=== PATIENT | female | born 1995 | race Caucasian/White ===

== ENCOUNTER 2024-10-28 10:03 | Outpatient (CLI) | payer OTHER, SELFPAY ==
--- NOTE | 2024-10-28 10:15 | CRLHL7_ITS ---
For Patients: As a result of the Century Cures Act, medical imaging exams and procedure reports are released immediately into your electronic medical record. You may view this report before your referring provider. If you have questions, please contact your health care provider. INDICATION: First trimester scan, establish dates. COMPARISON: None. TECHNIQUE: Real-time allred-scale imaging of the pelvis was performed. FINDINGS: Sonographic imaging demonstrates a single living intrauterine gestation. The embryo demonstrates a regular cardiac rate measuring 171 beats per minute. The embryo`s crown-rump length measurement of 1.9 cm corresponds to a gestational age of 8 weeks 3 days with a sonographic due date of 06/06/2025. There is a normal-appearing yolk sac. There are no gross abnormalities noted within the embryo at this early state of development. The gestational sac has a normal appearance. There is a superior perigestational hemorrhage measuring 2.3 x 1.4 x 1.2 cm. The amount of fluid within the sac appears appropriate for gestational age. The cervix is closed. The myometrium appears normal. Corpus luteal cyst left ovary measures 2.4 x 1.3 x 2.0 cm. Echogenic focus within the right ovary measures 5 x 3 x 5 millimeters. There are no suspicious fluid collections noted in the cul-de-sac. IMPRESSION: Single living intrauterine measuring 8 weeks 3 days and sonographic gestational age 0706/06/2025. Subchorionic hemorrhage measures 2.3 x 1.4 x 1.2 cm. 5 millimeter dermoid or calcification within the right ovary. Dictated by Gumaro De La Rosa MD @ 10/28/2024 12:32:57 PM (Electronically Signed)
== END 2024-10-28 10:04 | disposition home or self-care (01) ==
LOC: US 10:06
PROVIDERS: PCP Advanced Practice Midwife; Visit Provider Advanced Practice Midwife
DX: Z34.91 Encounter for supervision of normal pregnancy, unspecified, first trimester (principal); O20.9 Hemorrhage in early pregnancy, unspecified; O99.891 Other specified diseases and conditions complicating pregnancy; D27.0 Benign neoplasm of right ovary; Z3A.08 8 weeks gestation of pregnancy
CPT/HCPCS: 76817

== ENCOUNTER 2024-10-28 11:27 | Outpatient (CLI) | payer OTHER, SELFPAY | END 2024-10-28 11:28 | disposition home or self-care (01) | PROVIDERS: PCP Advanced Practice Midwife; Visit Provider Advanced Practice Midwife | DX: O99.891 Other specified diseases and conditions complicating pregnancy (principal); D27.0 Benign neoplasm of right ovary; Z3A.08 8 weeks gestation of pregnancy | CPT/HCPCS: 83020; 83021; 84443; 85660; 86592; 86703; 86704; 86706; 86762; 86787; 86803; 86850; 86900; 86901; 87086; 87340 ==

== ENCOUNTER 2025-01-20 07:57 | Outpatient (CLI) | payer OTHER, SELFPAY | END 2025-01-20 07:58 | disposition home or self-care (01) | LOC: NFLDREF 07:58 | PROVIDERS: PCP Advanced Practice Midwife; Visit Provider Advanced Practice Midwife | DX: E06.3 Autoimmune thyroiditis (principal) | CPT/HCPCS: 84443 ==

== ENCOUNTER 2025-01-20 10:09 | Outpatient (CLI) | payer OTHER, SELFPAY ==
--- NOTE | 2025-01-20 10:15 | CRLHL7_ITS ---
For Patients: As a result of the Century Cures Act, medical imaging exams and procedure reports are released immediately into your electronic medical record. You may view this report before your referring provider. If you have questions, please contact your health care provider. OB ULTRASOUND LMP: 08/30/2024. SHADI by LMP: 06/06/2025. GA: 20 w, 3 d. INDICATION: Anatomy. TECHNIQUE: Real time grayscale imaging of the fetus was performed. Evaluate anatomy. Transabdominal. position: Vertex. Cervix: Visualized. Technique: Transabdominal. Length of closed cervix: 5.6 cm. Placenta/cord: Posterior. Technique: Transabdominal. Placenta tip to internal OS: 5.7 cm. Umbilical Cord: 3-vessel cord. Placenta insertion: Central. Amniotic Fluid: 3.6 cm SDP (greater than/equal to: 2- less than 8 cm). SURVEY: Observed Structures. Calvarium/Spine: Cerebellum: 2.0 cm, 20 w 5 d. Cisterna Magna: 3.3 mm. Nuchal Fold: 5.5 mm. Lateral Ventricle: 6.3 mm. CSP: Yes. Midline Falx: Yes. Choroid Plexus: Yes. Spine: Yes. Abdomen: Stomach: Yes. Abd Cord Insertion: Yes. Urinary Bladder: Yes. Kidneys: Yes. Diaphragm: Yes. Face: Nose/lips: Yes. Orbital view: Yes. Profile: Yes. Limbs: Upper Extremities: Yes. Lower Extremities: Yes. Hands: Yes. Feet: Yes. Vascular: 4-Chamber Heart: Yes. LVOT: Yes. RVOT: Yes. 3VV: Yes. 3VTV: Yes. BPD: 4.6 cm. 19 w, 6 d, 27.9 percent. HC: 17.5 cm. 20 w, 0 d, 24.0 percent. AC: 14.8 cm. 20 w, 0 d, 31.0 percent. FL: 3.3 cm. 20 w, 1 d, 31.5 percent. FL/AC ratio: 22.0 percent. HC/AC ratio: 1.2. heart rate: 142 bpm. age by this US: 20 w, 1 d. SHADI by this US: 06/08/2025. EFW: 330.6 g. Weight: 12 oz. Percentile by SHADI: 26.7 percent. IMPRESSION: 1. Concordance of clinical and sonographic dating. 2. Normal anatomic survey. Gumaro De La Rosa M.D. Diagnostic Radiologist [email or web address] [email or web address]/Dictated by: Gumaro De La Rosa MD @ 01/21/2025 10:29:00 AM (Electronically Signed)
== END 2025-01-20 10:10 | disposition home or self-care (01) ==
LOC: US 10:09
PROVIDERS: PCP Advanced Practice Midwife; Visit Provider Advanced Practice Midwife
DX: Z34.92 Encounter for supervision of normal pregnancy, unspecified, second trimester (principal); Z3A.20 20 weeks gestation of pregnancy
CPT/HCPCS: 76805

== ENCOUNTER 2025-03-17 11:18 | Outpatient (CLI) | payer OTHER, SELFPAY | END 2025-03-17 11:19 | disposition home or self-care (01) | LOC: NFLDREF 11:19 | PROVIDERS: PCP Advanced Practice Midwife; Visit Provider Advanced Practice Midwife | DX: Z34.83 Encounter for supervision of other normal pregnancy, third trimester (principal); E06.3 Autoimmune thyroiditis | CPT/HCPCS: 84443; 86592 ==

== ENCOUNTER 2025-05-10 13:15 | Outpatient (CLI) | payer OTHER, SELFPAY | END 2025-05-10 13:16 | disposition home or self-care (01) | LOC: NFLDREF 05-14 00:39 | PROVIDERS: PCP Advanced Practice Midwife; Referring Provider Advanced Practice Midwife; Visit Provider Midwife | DX: Z34.83 Encounter for supervision of other normal pregnancy, third trimester (principal) | CPT/HCPCS: 87081; 87653 ==

== ENCOUNTER 2025-06-07 03:43 | Outpatient (CLI) | payer OTHER, SELFPAY ==
[2025-06-07 03:56] VITALS: PULSE 245; O2SAT 83
[2025-06-07 03:57] VITALS: BP 117/84; PULSE 82; PULSE 84; O2SAT 99
--- NOTE | 2025-06-07 04:38 | PC.OBNST ---
NST Note NST Note Start: 06/07/25 03:46 Freq: ONCE Status: Active Protocol: Document 06/07/25 04:37 JESSICA (Rec: 06/07/25 04:38 JESSICA [id number]) NST Note 2 Para (# of births) 1 EDC 06/06/25 Gestational Age In 40 Weeks & 1 Days Weeks & Days Patient Presented Decreased movement with Complaint(s) of Reactive Yes Appropriate for Yes Gestational Age RN Moises RN Date 06/07/25 Reactive Yes Appropriate for Yes Gestational Age RN Hector RN Date 06/07/25 OB NST charge Yes Complete NST Note Yes via Write Note The provider's electronic signature indicates the NST is reactive/appropriate for gestational age. *Note to provider: If an addendum is required, open the patient's chart and click on the note under the Nurse/Allied Health tab.
== END 2025-06-07 05:00 | disposition home or self-care (01) ==
LOC: OB OUT 03:43 → OB 03:45
PROVIDERS: PCP Advanced Practice Midwife; Visit Provider Midwife, Lay
DX: O36.8130 Decreased fetal movements, third trimester, not applicable or unspecified (principal); Z3A.40 40 weeks gestation of pregnancy
CPT/HCPCS: 59025; G0463

== ENCOUNTER 2025-06-09 06:04 | Inpatient (IN) | payer OTHER, SELFPAY ==
[2025-06-09] VITALS (18 sets, daily range): BP systolic 106–144; BP diastolic 62–87; PULSE 80–111; RESP 12–16; TEMP 36.6–36.9; O2SAT 98–100
--- NOTE | 2025-06-09 06:15 | P.LDBA_ITS ---
Subjective History of Present Illness Date Seen: 06/09/25 Narrative: Patient is being admitted to Labor and Delivery for spontaneous onset of labor. She is a 29 year old at 40 1/7 weeks gestation. Her full history and physical was dictated by Joel SHELLEY on 05/17/25. Please see this for details. She is supported in labor by Haseeb. Good FM. No LOF, some bloody show present. Labor started at about 0330. She is feeling it in her hips and across her stomach. Specific Issues/Plans Partner:??Haseeb. Son Kendall H&P done for labor admit 05/17/25 # Charlotte, w/ thyroid nodule Was managed by endocrine in [place], does not have area field person here in [place] Thyroid nodule was biopsied with unremarkable findings by endocrine Endocrine referral TSH at NOB 1.84, on 100 mcg levothyroxine *Taking 75 mcg Levothyroxine prior to , return to this dose after delivery. TSH 2nd trimester: 1.48 on 12/15/24 they desire repeat in 6 weeks; TSH collected on 01/20/25: 1.160 TSH 3rd trimester: 1.050 Repeat thyroid US Oct 2025 with Endocrine. # Hx of PPH Previous delivery 02/20/22: PPH for uterine atony and received all meds; QBL 1395 with manual sweep by . No concern for retained POC Recommend AMTSL: patient is OK with this if needed. # Headaches, generalized # Heart palpitations Offered cardiology referral, Holter monitor, labs for electrolytes. Patient declined for now. Will reach out if symptoms return. IMAGING:? 1st trimester: Single living intrauterine measuring 8 weeks 3 days and sonographic gestational age 0706/06/2025. Subchorionic hemorrhage measures 2.3 x 1.4 x 1.2 cm. 5 millimeter dermoid or calcification within the right ovary. Dictated by Gumaro De La Rosa MD @ 10/28/2024? Anatomy scan: 1. Concordance of clinical and sonographic dating. 2. Normal anatomic survey. Gumaro De La Rosa MD @ 01/21/2025? Others: none? COVID:?? Flu:?? Tdap:?04/19/2025? 32wk Mental Health:?? Pap: (Only high-risk abnormal pap in problem list)?? OB - Problem Based A/P Additional Plan (1) Pain during labor: Status: Acute (2) Post term : Status: Acute (3) History of hemorrhage: Status: Acute (4) Charlotte's disease: Status: Acute Plan ASSESSMENT:?? 29 at 40 1/7 weeks gestation?? 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 Labor type:Spontaneous, active labor?? Category 1 FHR pattern.??? Labor complicated by: hx PP hemorrhage?? GBS negative ?? PLAN:?? 1. Routine intrapartum cares as ordered. Continue with expectant management?? 2. Monitoring per policy, intermittent?? 3. Planning unmedicated . Desires water . Consent signed. Hep C negative. Candidate for analgesia of choice.??? 4. Patient encouraged to reposition and ambulate to promote physiologic labor and .?? 5. Labs : CBC, Type and screen. Pt agrees to saline lock 6. Plan to drop back to 75 mcg levo daily 7. Anticipate ? OB Exam Physical Exam Vital signs: Pulse BP 91 123/82 06/09/25 06:14 06/09/25 06:14 Narrative: Vitals Reviewed Constitutional:? Alert and oriented x3 HEENT:? Normocephalic, atraumatic Neck:? Supple Lungs:? Clear to auscultation bilaterally Heart:? Regular rate and rhythm, no murmur, rub or gallop Abdomen:? Soft, nontender, and gravid. Vertex by Lui's, confirmed with cervical exam. Extremities:? No edema or erythema Cervix: 5 cm per nursing NST: 135 bpm/moderate variability/accelerations absent/decelerations absent/contractions q 4 min
[2025-06-09 08:41] LABS: Hematocrit 36.3 % (33.0-51.0); Hemoglobin* 11.5 gm/dL (12.0-16.0); Immature Granulocytes Pct Auto 0.2 %; Mean Corpuscular HGB Conc 32 gm/dL (32-36); Mean Corpuscular Hemoglobin 26 pg (26-34); Mean Corpuscular Volume 82 fL (80-100); RDW Coefficient of Variation % 13.5 % (11.5-15.5); Red Blood Count 4.43 m/uL (4.00-5.20); White Blood Count* 11.26 K/uL (4.50-11.00)
[2025-06-09 08:42] LABS: Immature Granulocytes Abs Auto 0.00 K/uL (0.00-0.30); Lymphocytes Absolute Auto 1.60 K/uL (0.90-2.90); Slide Review Reflex No
[2025-06-09] MEDS: OXYTOCIN 30 unit/500 ML in NS 30 UNIT/500 ML BAG 300 UNIT IVPB (13:54)
--- NOTE | 2025-06-09 15:01 | W.PM.OBVAGDE ---
OB Procedure Vag Delivery Mother Details Mother Details: The patient is a 29 year-old, 2, Para 1, admitted on 06/09/25 at 40.3Days gestation. : 2 Para: 2 Weeks Gestation: 40.3 Admission Date: 06/09/25 Additional Details Amniotic Membrane Status: SROM Amniotic Membrane Rupture Date: 06/09/25 Amniotic Membrane Rupture Time: 13:03 Amniotic Membrane Fluid Description: Clear Analgesia/Anesthesia Type: Nitrous Oxide Waterbirth: Yes Pitcoin: Yes (AMTSL only) Intrapartal Events: None Labor Onset: 12:36 Complete: 13:06 (presumed complete with spontaneous pushing) Pushin:06 Heart: heart tones during second stage were heard by doppler in the [] without decreases heard. Delivery Details Delivery Date: 06/09/25 Delivery Time: 13:13 Route of delivery: Infant Gender: Male Infant Viability: Alive; Heart Rate Present Position at Delivery: OA Delivery Details: Madonna was admitted for spontaneous labor and progressed normally. She was moved into the water tub room when it was available and used nitrous and hydrotherapy for labor coping. She labored in the tub for a while before being encouraged to get out to empty her bladder. She did do side lying release, used the peanut ball and standing at the bedside to help progress labor while she was out. SROM noted at 1303 with clear fluid while standing at the side of the bed. She was then encouraged and assisted to get back into the tub as she desired a water . Patient was presumed complete with spontaneous pushing at 1306. of a viable male at 1313 in hands and knees in the tub. Vertex delivered OA. No nuchal cord or shoulder. Body delivered easily and without incident. Infant passed to mothers abdomen with a vigorous cry. Cord was clamped and cut at > 5 minutes. APGARS were 8 at one minute and 8 at five minutes respectively. Mouth was bulb suctioned. Intact placenta with a 3 vessel cord delivered spontaneously at 1346. Some calcifications and a circumvallate placenta was noted with inspection. Fundus firm. 1st degree laceration identified and was well approximated and hemostatic. After shared decision making the patient declined repair of the laceration. QBL 320 mL and 50 EBL in the tub and not in the drape for a total blood loss of 375mL. Mother and baby stable; mother plans to breastfeed. Infant weight 9lb 2oz. 1 Minute Interval Total Score: 8 5 Minute Interval Total Score: 8 Additional Details Shoulder Dystocia: No Placenta Delivery Time: 13:46 Placental Delivery Description: Spontaneous Procedure Done: Global Blood Loss: 375 Laceration: Perineal - 1st Degree (not repaired ) Episiotomy Description: None Blood Loss Measurement Type: QBL Bakri Used: No Sponge/Need Count Correct: Yes Cord Vessel Description: 3 Vessels Event Summary Status: Mother and infant were stable after delivery. Disposition: floor
--- NOTE | 2025-06-09 22:31 | P.DS_ITS ---
DS: Providers Provider Date Seen: 06/09/25 Date of admission: 06/09/25 06:04 Primary care physician: Arcelia Dominguez CNM Admitting Clinician: Trisha Clinton CNM Attending Physician on discharge: Trisha Clinton CNM Date of Discharge: 06/09/25 DS: Diagnosis Discharge Diagnosis (1) Lactating mother: Status: Acute (2) care following vaginal delivery: Status: Acute Exam Narrative: Exam Narrative: GENERAL APPEARANCE:? normal affect, alert, no distress? MOOD:? appropriate? CHEST:? clear to auscultation and percussion? HEART:? regular rate and rhythm? BREASTS: soft, nontender, no erythema, nipples intact? ABDOMEN:? soft, non-tender the uterine fundus is U/2 and is appropriate for the stage of recovery.? PERINEUM:? mild edema of the perineum, there is a 1st degree laceration that is healing well.? EXTREMITIES:? normal and no edema? Const: Vital Signs, click to edit/add: Vital Signs - 24 hr 06/09/25 06:14 06/09/25 08:15 06/09/25 08:15 Temperature 97.8 F Pulse Rate 91 93 Respiratory Rate 12 Blood Pressure 123/82 133/87 Pulse Oximetry 100 06/09/25 09:28 06/09/25 09:29 06/09/25 10:29 Temperature Pulse Rate 87 Respiratory Rate Blood Pressure 134/85 119/81 Pulse Oximetry 100 06/09/25 10:29 06/09/25 11:31 06/09/25 11:31 Temperature 98 F 98.4 F Pulse Rate 103 H 86 Respiratory Rate 16 12 Blood Pressure 110/69 Pulse Oximetry 06/09/25 12:24 06/09/25 13:50 06/09/25 13:52 Temperature Pulse Rate 91 109 H 110 H Respiratory Rate Blood Pressure 144/66 H 120/72 112/67 Pulse Oximetry 06/09/25 14:07 06/09/25 14:22 06/09/25 14:37 Temperature Pulse Rate 100 93 96 Respiratory Rate Blood Pressure 108/62 118/70 106/63 Pulse Oximetry 06/09/25 14:52 06/09/25 15:07 06/09/25 15:22 Temperature Pulse Rate 100 95 97 Respiratory Rate Blood Pressure 109/70 112/70 120/74 Pulse Oximetry 06/09/25 15:37 06/09/25 15:52 Temperature Pulse Rate 88 94 Respiratory Rate Blood Pressure 115/68 113/65 Pulse Oximetry Documenting provider has reviewed patient's vital signs: yes OB - DS: Summary Hospital Course Hospital Course: Madonna is a 29 y.o. G 2 P 2 who was admitted to L & D for spontaneous labor. ?She had a NVD that was uncomplicated. The patient feels well. ?The pain is well controlled with current medications. ?She has no new complaints. ?She is breast feeding and reports things are going well initially although baby is not currently going to breast. the patient has done well.? Vitals have been stable.? She has remained afebrile.? Has a good appetite, is tolerating a general diet. ?She is voiding without difficulty.? She is passing gas and has not had a bowel movement.? She is ambulating and denies any dizziness.? Has s mall amount of rubra lochia. She is planning NFP for prevention. Madonna is requesting an early discharge due to the necessity of having to transfer baby to a higher level of care. She is planning on sleeping for a couple of hours and letting baby get settled in the NICU but she would like to leave as soon as she is awake. Reviewed bleeding precautions, preeclampsia symptoms, and other symptoms to be aware of and to be evaluated. We also reviewed increased risks for mood disturbances with baby being in the NICU. Problems: none Peripartum Data delivery method: Vaginal Laceration description: Perineal - 1st Degree Episiotomy description: None Spangler Gender: Male Infant Discharge Plan: NICU transfer Status at Discharge Functional status at discharge: independent ambulation Overall status at discharge: patient is progressing back to baseline Time Spent with Patient Time attestation: Total time spent providing and/or coordinating discharge services: Discharge Plan Discharge Disposition: Home, Self-Care Date of Admission: 06/09/25 06:04 Attending Provider on Discharge: Marsha Duque Primary Care Provider: Arcelia Dominguez Condition: Stable Anticipated Discharge Date/Time: 06/10/25 05:00 Discharge Medications: New levothyroxine [Synthroid] 75 mcg Tablet 75 mcg PO DAILY@0700 Qty: 90 2RF Continued [id number] 3 fatty no.1 27-1-300 mg capsule 1 cap PO DAILY Discontinued levothyroxine [Synthroid] 100 mcg tablet 100 mcg PO QDAY Qty: 30 0RF Discharge Orders: Discharge Order (Routine); Ordered 06/10/25 Ordered By: Marsha Duque Patient Education: OB Vaginal/Breast Feeding Additional Instructions: Discharge instructions were reviewed with the patient including signs and symptoms of infection and home going medications Nothing vaginally for 6 weeks: no tampons or intercourse Do not drive while taking narcotic pain medication(s) Off Work or School for 8 weeks Symptoms to report to doctor: * Bleeding that saturates more than one pad per hour * Passing clots larger than the size of a golf ball * Pain not relieved by prescribed medication * Fever above 100.4 degrees Fahrenheit * A foul vaginal odor * Difficulty in emotions, mood, and functions * Thoughts of hurting yourself and/or * Painful, reddened area in your breast * Any drainage, redness, or tenderness in your IV/epidural site * Severe headache that doesn't improve after taking medications * Changes in vision, including temporary loss of vision, blurred vision, and/or light sensitivity * Upper abdominal pain (usually under ribs on the right side) * Decrease in urination or painful, frequent urinating * Chest pain * Shortness of breath * Tenderness or pain with redness and/swelling in the calf(s) of your leg 2-week visit: discuss infant feeding concerns, review control options and screen for anxiety/depression. 6-week visit for an annual exam. consultation services are available to all mothers and babies for the first year after delivery.? To make an appointment, please call [phone]. Activity Level: Activity as Tolerated Discharge Diet: Regular Follow Up Appointments: [facility] [Provider Group] Forms: [email or web address] Info Instructions
[2025-06-09] MEDS: IBUPROFEN 600 MG TABLET PO (23:31)
[2025-06-10 02:12] VITALS: BP 97/52; PULSE 94; RESP 16; TEMP 36.6; O2SAT 96
[2025-06-10 05:38] LABS: Hemoglobin* 8.5 gm/dL (12.0-16.0)
[2025-06-10 05:43] VITALS: BP 107/67; PULSE 88; RESP 16; O2SAT 95
[2025-06-10 08:05] VITALS: BP 96/67; PULSE 94; RESP 16; TEMP 36.5; O2SAT 96
--- NOTE | 2025-06-10 08:15 | P.DS_ITS ---
DS: Providers Provider Date Seen: 06/10/25 Date of admission: 06/09/25 06:04 Primary care physician: Arcelia Dominguez CNM Admitting Clinician: Trisha Clinton CNM Attending Physician on discharge: Arcelia Dominguez CNM DS: Diagnosis Discharge Diagnosis (1) care following vaginal delivery: Status: Acute (2) Lactating mother: Status: Acute Exam Narrative: Exam Narrative: GENERAL APPEARANCE:? normal affect, alert, no distress MOOD:? appropriate CHEST:? clear to auscultation HEART:? regular rate and rhythm ABDOMEN:? soft, non-tender the uterine fundus is At Umbilicus, Midline and is appropriate for the stage of recovery. PERINEUM:? mild edema of the perineum, there is a Perineal Laceration,?1st degree, that is healing well. EXTREMITIES:? normal and no edema Const: Vital Signs, click to edit/add: Vital Signs - 24 hr 06/09/25 09:28 06/09/25 09:29 06/09/25 10:29 Temperature Pulse Rate 87 Pulse Rate [Pulse Oximeter] Respiratory Rate Blood Pressure 134/85 119/81 Blood Pressure [Le ft Arm] Pulse Oximetry [facility] 10:29 06/09/25 11:31 06/09/25 11:31 Temperature 98 F 98.4 F Pulse Rate 103 H 86 Pulse Rate [Pulse Oximeter] Respiratory Rate 16 12 Blood Pressure 110/69 Blood Pressure [Le ft Arm] Pulse Oximetry Oxygen Delivery Oh thod 06/09/25 12:24 06/09/25 13:50 06/09/25 13:52 Temperature Pulse Rate 91 109 H 110 H Pulse Rate [Pulse Oximeter] Respiratory Rate Blood Pressure 144/66 H 120/72 112/67 Blood Pressure [Le ft Arm] Pulse Oximetry [facility] 14:07 06/09/25 14:22 06/09/25 14:37 Temperature Pulse Rate 100 93 96 Pulse Rate [Pulse Oximeter] Respiratory Rate Blood Pressure 108/62 118/70 106/63 Blood Pressure [Le ft Arm] Pulse Oximetry Oxygen Delivery Oh thod 06/09/25 14:52 06/09/25 15:07 06/09/25 15:22 Temperature Pulse Rate 100 95 97 Pulse Rate [Pulse Oximeter] Respiratory Rate Blood Pressure 109/70 112/70 120/74 Blood Pressure [Le ft Arm] Pulse Oximetry Oxygen Delivery Me thod 06/09/25 15:37 06/09/25 15:52 06/09/25 22:34 Temperature 98.3 F Pulse Rate 88 94 Pulse Rate [Pulse Oximeter] 111 H Respiratory Rate 16 Blood Pressure 115/68 113/65 Blood Pressure [Le ft Arm] 107/71 Pulse Oximetry 98 Oxygen Delivery Me thod Room Air 06/10/25 02:12 06/10/25 05:43 Temperature 97.8 F Pulse Rate Pulse Rate [Pulse Oximeter] 94 88 Respiratory Rate 16 16 Blood Pressure Blood Pressure [Le ft Arm] 97/52 L 107/67 Pulse Oximetry 96 95 Oxygen Delivery Me thod Room Air Room Air OB - DS: Summary Hospital Course Hospital Course: Madonna is a 29 y.o. G 2 P 2 who was admitted to L & D for spontaneous onset of labor. ?She had a NVD that was uncomplicated. The patient feels well. ?The pain is well controlled with current medications. ?She has no new complaints. ?She is breast feeding and reports things are going okay. the patient has done well.? Vitals have been stable.? She has remained afebrile.? Has a good appetite, is tolerating a general diet. ?She is voiding without difficulty.? She is passing gas and has not had a bowel movement.? She is ambulating and denies any dizziness.? Has small amount of rubra lochia. Baby has had some breathing episodes and the possibility of transfer was discussed. If baby transfers, she will discharge. If baby ends up staying, she plans to stay and d/c tomorrow. Problems: Anemia Discharge home with baby.? Follow up in 2 weeks and 6 weeks.? , may see if needed? Hgb 8.5. Iron supplement ordered orally every other day? For pain control of perineum, breast and pelvic pain, take 600 mg Ibuprofen every 6 hours as needed by mouth or 1000 mg acetaminophen (Tylenol) every 6 hours by mouth as needed. You can alternate these so you are taking something every 3 hours as needed. A heating pad can also be used for your abdomen or breasts. You may also take docusate sodium up to twice daily to soften your stools and help to prevent constipation. You may wean off of it when your stools return to normal.? Peripartum Data delivery method: Vaginal Laceration description: Perineal - 1st Degree complications: none Gender: Male Infant Discharge Plan: Possible NICU transfer Status at Discharge Functional status at discharge: independent ambulation Overall status at discharge: patient is progressing back to baseline Time Spent with Patient Time attestation: Total time spent providing and/or coordinating discharge services: Time spent: Less than 30 minutes Discharge Plan Discharge Disposition: Home, Self-Care Date of Admission: 06/09/25 06:04 Attending Provider on Discharge: Arcelia Dominguez Primary Care Provider: Arcelia Dominguez Condition: Stable Anticipated Discharge Date/Time: 06/10/25 05:00 Discharge Medications: New levothyroxine [Synthroid] 75 mcg Tablet 75 mcg PO DAILY@0700 Qty: 90 2RF ferrous sulfate 325 mg (65 mg iron) Tablet 325 mg PO Q OTHER DAY Qty: 60 0RF acetaminophen 500 mg Tablet 1,000 mg PO Q6H PRNQty: 0 0RF docusate sodium 100 mg Capsule 100 mg PO DAILY Qty: 60 0RF ibuprofen 600 mg Tablet 600 mg PO Q6H PRNQty: 60 0RF Continued [id number] 3 fatty no.1 27-1-300 mg capsule 1 cap PO DAILY Discontinued levothyroxine [Synthroid] 100 mcg tablet 100 mcg PO QDAY Qty: 30 0RF Discharge Orders: Discharge Order (Routine); Ordered 06/10/25 Ordered By: Marsha Duque Patient Education: OB Vaginal/Breast Feeding Additional Instructions: Discharge instructions were reviewed with the patient including signs and symptoms of infection and home going medications Nothing vaginally for 6 weeks: no tampons or intercourse Off Work or School for 6 weeks 2-week visit: discuss infant feeding concerns, review control options and screen for anxiety/depression. 6-week visit for an annual exam. consultation services are available to all mothers and babies for the first year after delivery.? To make an appointment, please call [phone]. Activity Level: Activity as Tolerated and No strenuous activity Discharge Diet: Regular Follow Up Appointments: [facility] [Provider Group] Forms: [employer] Info Instructions
[2025-06-10 13:10] VITALS: BP 100/64; PULSE 98; RESP 16; TEMP 36.9; O2SAT 96
[2025-06-10] MEDS: IBUPROFEN 600 MG TABLET PO (14:00)
[2025-06-10] MEDS: FERROUS SULFATE 325 MG TABLET PO (14:00)
[2025-06-10 21:40] VITALS: BP 117/74; PULSE 87; RESP 16; TEMP 36.6; O2SAT 96
[2025-06-11 05:41] VITALS: BP 111/74; PULSE 92; RESP 20; O2SAT 97
[2025-06-11 08:00] VITALS: BP 108/71; PULSE 82; RESP 16; TEMP 36.4; O2SAT 95
[2025-06-11] MEDS: LEVOTHYROXINE 75 MCG TABLET PO (08:05)
[2025-06-11] MEDS: DOCUSATE SODIUM 100 MG CAPSULE PO (08:05)
[2025-06-11] MEDS: BENZOCAINE/MENTHOL SPRAY 85 GM AEROSOL 1 APPLIC TOPICAL (08:06)
--- NOTE | 2025-06-11 09:35 | PM.OBPNVD1 ---
OB - PN:Subj Subjective Time Seen by Provider: 09:35 Date Seen: 06/11/25 Interval history: Day 2:? Vaginal Delivery at 40 and 5/7 weeks.? ?? Complications:? none; baby has needed additional cares so Madonna was not discharged yesterday; will move to bonding status today. ? Madonna feels well.? Her pain is well controlled with current medications.? She has no new complaints.? Urinary output is adequate and she is voiding without difficulty.? Has a good appetite, is tolerating a general diet, is passing flatus, and has had a bowel movement.? Has scat amount of rubra lochia.? She is ambulating well.? Patient comments OB post-: no complaints infant status: and doing well [place] feeding status: exclusively OB - PN: Obj Exam Physical Exam: Vital signs: Temp Pulse Resp BP Pulse Ox O2 Del Method 97.6 F 82 16 108/71 95 Room Air 06/11/25 08:00 06/11/25 08:00 06/11/25 08:00 06/11/25 08:00 06/11/25 08:00 06/11/25 08:00 Narrative: GENERAL APPEARANCE:? normal affect, alert, no distress? MOOD:? appropriate? Remainder of exam deferred as was previosuly cleared for discharge yesterday. OB - PN: A/P Delivery Assessment and Plan (1) care following vaginal delivery: Problem details: 29 year old on day 2. 1. cares. 2. Discharge today to bonding status; baby remains inpatient. 3. Pt will schedule f/u appt in clinic in 2 weeks. Status: Acute (2) Lactating mother: Status: Acute (3) anemia: Problem details: Reviewed how to take iron supplements, ideally with vitamin C from orange juice or supplement. Recheck hgb at 6wk visit PRN. Status: Acute Plan day: 2 Plan: discharge home
== END 2025-06-11 14:13 | disposition home or self-care (01) | DRG 807 ==
LOC: OB OUT 06:04 → OB 06:04
PROVIDERS: Admitting Provider Midwife; PCP Advanced Practice Midwife; Visit Provider Midwife
DX: O99.284 Endocrine, nutritional and metabolic diseases complicating childbirth (principal); Z37.0 Single live birth; O70.0 First degree perineal laceration during delivery; E06.3 Autoimmune thyroiditis; E04.1 Nontoxic single thyroid nodule; O90.81 Anemia of the puerperium; D64.9 Anemia, unspecified; Z3A.40 40 weeks gestation of pregnancy
CPT/HCPCS: 36415; 85018; 85025; 86850; 86900; 86901; A9270

== ENCOUNTER 2025-07-25 09:24 | Outpatient (CLI) | payer OTHER, SELFPAY | END 2025-07-25 09:25 | disposition home or self-care (01) | LOC: NFLDREF 09:25 | PROVIDERS: Visit Provider Advanced Practice Midwife | DX: E06.3 Autoimmune thyroiditis (principal); R79.89 Other specified abnormal findings of blood chemistry | CPT/HCPCS: 84439; 84443 ==

== ENCOUNTER 2025-09-06 10:16 | Outpatient (CLI) | payer OTHER, SELFPAY | END 2025-09-06 10:17 | disposition home or self-care (01) | LOC: NFLDREF 09-08 10:21 | PROVIDERS: Visit Provider Midwife | DX: E06.3 Autoimmune thyroiditis (principal); O90.81 Anemia of the puerperium; R53.83 Other fatigue | CPT/HCPCS: 84443 ==